=== PATIENT | female | born 1955 | race Caucasian/White ===

== ENCOUNTER 2017-08-08 13:15 | Emergency (ER) | payer OTHER ==
[2017-08-08 13:31] VITALS: BP 143/84
--- NOTE | 2017-08-08 13:33 | ED Physician Documentation ---
PD HPI LOWER EXT INJURY - Stated complaint Stated Complaint: GLF - Chief complaint Chief Complaint: Ext Problem - History obtained from History obtained from: Patient - History of Present Illness PD HPI LOW EXT INJURY LOCATION: Right, Knee, Lower leg Type of injury: Fall (she fell walking up concrete steps and landed directly onto anterior temple/knee, with pain and bruising there. Tender to the touch. She is concerned about fracture.) Timing - onset: Yesterday Timing - details: Abrupt onset, Still present Associated symptoms: Weakness (generally of both legs and is getting PT/rehab for those.), Swelling (with bruising anterior upper tibial area.). No: Numbness Contributing factors: No: Anticoagulated Similar symptoms before: Has not had sx before Review of Systems Skin: denies: Abrasion (s), Laceration (s) Neurologic: reports: Generalized weakness. denies: Focal weakness, Numbness PD PAST MEDICAL HISTORY - Past Medical History Musculoskeletal: Osteoarthritis - Present Medications Home Medications: Ambulatory Orders Medication Instructions Recorded Confirmed HYDROcod/ACETAM 5/325 [[place] 5/325] 1 tab PO Q6H PRN #20 tablet 08/08/17 Naproxen 375 mg PO BID #20 tablet 08/08/17 - Allergies Allergies/Adverse Reactions: Allergies Allergy/AdvReac Type Severity Reaction Status Date / Time atorvastatin Allergy Unknown Verified 08/08/17 13:34 losartan Allergy Unknown Verified 08/08/17 13:34 meperidine [From Demerol] Allergy Unknown Verified 08/08/17 13:34 pravastatin Allergy Unknown Verified 08/08/17 13:34 rosuvastatin Allergy Unknown Verified 08/08/17 13:34 simvastatin Allergy Unknown Verified 08/08/17 13:34 [id number] Reductase Allergy Unknown Verified 08/08/17 13:34 Inhibitor telmisartan Allergy Unknown Verified 08/08/17 13:34 adhesive AdvReac Rash Verified 08/08/17 13:34 PD ED PE NORMAL - Vitals Vital signs reviewed: Yes - General General: Alert and oriented X 3, No acute distress, Well developed/nourished - Derm Derm: Normal color, Warm and dry, No rash - Extremities Extremities: Other (right anterior upper lower leg and infrapatellar area with local tenderness, swlelling, and some bruising color. No gross deformity. Ligament testing not really attempted due to tenderness. ) - Neuro Neuro: Alert and oriented X 3, No motor deficit, Normal speech Results - Vitals Vitals: Vital Signs - 24 hr 08/08/17 13:27 Temperature 36.3 C L Heart Rate 70 Respiratory 20 Rate Blood Pressure 143/84 H O2 Saturation 94 Oxygen O2 Source Room air - Rads (name of study) right knee Radiology: Prelim report reviewed, EMP read contemporaneously (some arthritic changes; no fracture) PD MEDICAL DECISION MAKING - ED course Complexity details: reviewed results (some arthritic changes on xray; no fracture), considered differential (seems likely bruising and hurts. Was direct fall and not twisting, so ligamentous injury much less likely. Hard to assess ligaments on exam (is tender at bruising and has large legs). ), d/w patient Departure - Departure Disposition: 01 Home, Self Care Clinical Impression: Fall from slip, trip, or stumble Qualifiers: Encounter type: initial encounter Qualified Code(s): W01.0XXA - Fall on same level from slipping, tripping and stumbling without subsequent striking against object, initial encounter Knee contusion Qualifiers: Encounter type: initial encounter Laterality: right Qualified Code(s): S80.01XA - Contusion of right knee, initial encounter Condition: Stable Record reviewed to determine appropriate education?: Yes Instructions: ED Contusion Lower Ext Prescriptions: HYDROcod/ACETAM 5/325 [[place] 5/325] 1 tab PO Q6H PRN #20 tablet PRN Reason: Pain Naproxen 375 mg PO BID #20 tablet Comments: You have arthritic changes on your x-ray but no fractures. Your knee will be sore from the bruising and swelling but this should decrease over several days to week or so. Use anti-inflammatories twice daily. Add hydrocodone if needed for pain. Use a knee brace when needed to help support the knee and provide compression. Progress activity as able. Discharge Date/Time: 08/08/17 15:31
--- NOTE | 2017-08-08 14:27 | XRAY Report ---
EXAM: RIGHT KNEE RADIOGRAPHY EXAM DATE: 08/08/2017 02:15 PM. CLINICAL HISTORY: GLF, pain swelling in rt knee. COMPARISON: None. TECHNIQUE: 4 Views. FINDINGS: Bones: No acute fractures. Joints: Tricompartmental osteophytes are present. Moderate joint space narrowing of the medial compar tment and patellofemoral compartment with sclerosis. Soft Tissues: Unremarkable IMPRESSION: No acute radiographic abnormalities. Osteoarthritis worse in the medial and patellofemoral compartmen ts. Kellgren Pablo Grade 3. Kellgren and Pablo classification of osteoarthritis: Grade 0: no radiographic features of osteoarthritis are present Grade 1: doubtful joint space narrowing (JSN) and possible osteophytic lipping Grade 2: definite osteophytes and possible JSN on anteroposterior weight-bearing radiograph Grade 3: multiple osteophytes, definite JSN, sclerosis, possible bony deformity Grade 4: large osteophytes, marked JSN, severe sclerosis and definite bony deformity [facility] Referring Provider Line: [phone] SITE ID: [id number]
[2017-08-08] MEDS ORDERED: HYDROcod/ACETAM 5/325 MG TABLET PO STA (14:29)
== END 2017-08-08 15:31 | disposition home or self-care (01) ==
LOC: ED 13:15
DX: S80.01XA Contusion of right knee, initial encounter (principal); W10.9XXA Fall (on) (from) unspecified stairs and steps, initial encounter; Y93.01 Activity, walking, marching and hiking; M17.11 Unilateral primary osteoarthritis, right knee
CPT/HCPCS: 73564; 99283; A9270

== ENCOUNTER 2018-04-01 22:07 | Outpatient (CLI) | payer OTHER | END 2018-04-01 22:08 | disposition EMS.NT | LOC: EMS 22:07 | PROVIDERS: ATTEND Surgery | CPT/HCPCS: A0425; A0429 ==